=== PATIENT | female | born 1965 | race Caucasian/White ===

== ENCOUNTER 2019-10-14 11:37 | Outpatient (CLI) | payer OTHER, SELFPAY ==
--- NOTE | ~2019-10-14 | XR_ITS ---
XR hand LT 2V DATE: 10/14/2019 12:05 INDICATION: Bilateral hand pain. Polyarthralgia. TECHNIQUE: AP and lateral views COMPARISON: None FINDINGS: There is mild osteoarthritic change at the interphalangeal joints. No erosive change. No fracture or dislocation, periosteal reaction or bone destruction. 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
--- NOTE | ~2019-10-14 | XR_ITS ---
XR hand RT 2V DATE: 10/14/2019 12:05 INDICATION: Bilateral hand pain. Polyarthralgia. TECHNIQUE: AP and lateral views COMPARISON: None FINDINGS: No fracture or dislocation, periosteal reaction or bone destruction. No erosive change or c hondrocalcinosis. Joint spaces are relatively preserved. IMPRESSION: No significant abnormality Reviewed, dictated and finalized at location A. IMPRESSION: No significant abnormality
== END 2019-10-14 11:38 | disposition home or self-care (01) ==
LOC: ANHIMG 11:51
PROVIDERS: PCP Family Medicine Sports Medicine; Visit Provider Physician Assistant
DX: M25.50 Pain in unspecified joint (principal); M19.042 Primary osteoarthritis, left hand
CPT/HCPCS: 73120